=== PATIENT | female | born 2000 | race Two or more races ===

== ENCOUNTER 2021-06-20 02:54 | Inpatient (IN) | payer OTHER ==
[~2021-06-20] VITALS: Ht 152.4 cm; Wt 47.2 kg
[2021-06-20] MEDS ORDERED: PRENATAL CAPLE1 EAC1 PO (06:13)
[2021-06-20] MEDS ORDERED: FOLIC ACID20 MG PO (06:14)
[2021-06-20] MEDS ORDERED: PROMETRIUM200 MG PO (06:15)
== END 2021-06-22 14:27 | disposition home or self-care (01) | DRG 807 ==
LOC: OB/GYN 02:54 → LDR 02:54 → OB/GYN 08:39
PROVIDERS: ADMIT Obstetrics & Gynecology; ATTEND Obstetrics & Gynecology
PROC: 10E0XZZ Delivery of Products of Conception, External Approach (ICD-10-PCS; principal; 2021-06-20)
PROC: 4A1HXCZ Monitoring of Products of Conception, Cardiac Rate, External Approach (ICD-10-PCS; 2021-06-20)
DX: O60.13X0 Preterm labor second trimester with preterm delivery third trimester, not applicable or unspecified (principal); Z37.0 Single live birth; Z3A.33 33 weeks gestation of pregnancy; Z20.822 Contact with and (suspected) exposure to COVID-19

== ENCOUNTER 2021-06-23 09:02 | Outpatient (CLI) | payer OTHER ==
[~2021-06-23 09:02] MED LIST: FOLIC ACID20 MG PO; PRENATAL CAPLE1 EAC1 PO; PROMETRIUM200 MG PO
== END 2021-06-23 09:44 | disposition home or self-care (01) ==
LOC: LAB 09:02
PROVIDERS: ATTEND Pediatrics
DX: Z20.822 Contact with and (suspected) exposure to COVID-19 (principal)